=== PATIENT | male | born 1985 | race Caucasian/White ===

== ENCOUNTER 2018-04-11 17:05 | Inpatient (IN) | payer BC, SELFPAY ==
[~2018-04-11 17:05] MED LIST: Dexamethasone 20 MG/5 ML VIAL ONE; Lidocaine 1% PF 5 ML VIAL ONE; Ondansetron HCl/PF 4 MG/2 ML Vial ONE; PROPOFOL 200 MG/20 ML VIAL ONE; Succinylcholine Chloride 20 MG/ML 10 ml SYRINGE FS ONE; ePHEDrine/0.9% NaCl/PF SYRINGE 50 mg/10 ml ONE
[2018-04-11] MEDS ORDERED: Adacel (T-DAP) 0.5 ML VIAL ONE (17:15)
[2018-04-11] MEDS ORDERED: Lidocaine 1% (PF) 30 ML VIAL ONE (17:19)
--- NOTE | 2018-04-11 17:49 | RAD ---
THREE VIEWS RIGHT HAND 04/11/18 HISTORY: Injury to right hand while using tools, bleeding controlled. AP, lateral, and oblique views of the right hand obtained. Three views right hand demonstrates no definite evidence of fractures or significant bony lesions. Th ere may be some soft tissue injury along the base of the second digit. IMPRESSION: No evidence of acute right hand bony lesion seen. POS: [facility]
[2018-04-11] MEDS ORDERED: HYDROcodone/Acetaminophen 5/325 mg Tablet ONE (18:14)
[2018-04-11 18:40] LABS: #Eosinphils 0.1 thou/uL (0.0-0.7); #Monocytes 0.5 thou/uL (0.11-0.59); #Neutrophils 4.8 thou/uL (1.40-6.50); %Basophils 0.3 % (0.0-1.0); %Eosinophils 1.8 % (0.0-10.0); %Lymphocytes 15.5 % (21.0-51.0); %Monocytes 7.9 % (0.0-10.0); %Neutrophils 74.5 % (42.0-75.0); Hemoglobin 13.5 g/dL (14.0-18.0); Mean Corpuscular HGB CONC 32.7 g/dL (32.0-36.0); Mean Corpuscular Hemoglobin 30.3 pg (27.0-31.0); Mean Corpuscular Volume 92.8 fL (78.0-98.0); Mean Platelet Volume 8.9 fL (7.4-10.4); Platelet Count 219 thou/uL (130-400); RBC Distribution Width 12.8 % (11.5-14.5); Red Blood Cell (RBC) Count 4.45 mill/uL (4.70-6.10); White Blood Cell (WBC) Count 6.4 thou/uL (4.8-10.8)
[2018-04-11 18:48] LABS: INR-International Normal Ratio 1.1; PTT 32.3 SEC (22.9-36.1); Prothrombin Time 13.9 SEC (12.0-14.7)
[2018-04-11] MEDS ORDERED: CEFAZOLIN/Water 2 GM/20 ML SYRINGE SLOW IVP SCH (19:00)
[2018-04-11] MEDS ORDERED: Gentamicin Sulfate 80 MG in Premix Bag 1 BAG IVPB SCH (19:00)
[2018-04-11] MEDS ORDERED: Penicillin G Potassium 3 MILL.UNITS in Sodium Chloride 0.9% 50 ML IVPB SCH (19:00)
[2018-04-11 19:02] LABS: ALT (SGPT) 21 U/L (8-55); AST (SGOT) 26 U/L (5-34); Albumin 4.2 g/dL (3.5-5.0); Alkaline Phosphatase 49 U/L (40-150); Anion Gap 11 mmol/L (10-20); BUN (Urea Nitrogen) 15 mg/dL (8.9-20.6); Bilirubin, Total 0.6 mg/dL (0.2-1.2); Calc. Creatinine Clearance 0 mL/min (70-130); Calcium 9.3 mg/dL (7.8-10.44); Carbon Dioxide 29 mmol/L (22-29); Chloride 103 mmol/L (98-107); Estimated GFR-MDRD 86; Glucose 114 mg/dL (70-105); Protein, Total 7.2 g/dL (6.0-8.3); Sodium 139 mmol/L (136-145)
[2018-04-11] MEDS ORDERED: Ondansetron ODT 4 MG TAB PO PRN (19:22)
[2018-04-11] MEDS ORDERED: Dextrose 50% Abboject 50 ML SYRINGE SLOW IVP PRN (19:22)
[2018-04-11] MEDS ORDERED: Dextrose 5% in Water 1,000 ML IV PRN (19:22)
[2018-04-11] MEDS ORDERED: Ondansetron ODT 4 MG TAB ONE (19:27)
[2018-04-11] MEDS ORDERED: Bacitracin Zinc Ointment 30 gm TUBE ONE (20:52)
[2018-04-11] MEDS ORDERED: Sodium Chloride 0.9% 30 ML ONE (20:52)
[2018-04-11] MEDS ORDERED: Bupivacaine PF 0.5% 30 ML VIAL ONE ×2 (20:52→22:46)
[2018-04-11] MEDS ORDERED: Betamet Acet/Betamet Na Ph 30 MG/5 ML VIAL ONE (20:52)
[2018-04-11] MEDS ORDERED: HYDROmorphone 2 MG/ML VIAL ONE (21:06)
[2018-04-11] MEDS ORDERED: Fentanyl 100 MCG/2 ML VIAL ONE (21:06)
[2018-04-11 21:22] VITALS: BMI 28.7
[2018-04-11] MEDS: Acetaminophen 325 MG TAB PO SCH (21:48)
[2018-04-11] MEDS: Ibuprofen 600 MG TAB PO SCH (21:49)
[2018-04-11] MEDS: traMADol HCl 50 MG TAB PO SCH (21:49)
[2018-04-11] MEDS: Famotidine 20 MG TAB PO SCH (21:49)
[2018-04-11] MEDS ORDERED: CEFAZOLIN 1 GM VIAL SLOW IVP SCH (22:00)
[2018-04-11] MEDS: CEFAZOLIN 1 GM in Sodium Chloride 0.9% 100 ML IVPB SCH (23:10)
[2018-04-11] MEDS: Gentamicin Sulfate 80 MG in Premix Bag 1 BAG IVPB SCH (23:11)
[2018-04-12] MEDS ORDERED: Ondansetron HCl/PF 4 MG/2 ML Vial IVP PRN (00:22)
[2018-04-12] MEDS ORDERED: Promethazine HCl 25 MG/ML VIAL IM PRN (00:22)
[2018-04-12] MEDS ORDERED: Promethazine HCl 25 MG/ML VIAL SLOW IVP PRN (00:22)
[2018-04-12] MEDS ORDERED: HYDROmorphone 2 MG/ML VIAL SLOW IVP PRN (00:22)
[2018-04-12] MEDS ORDERED: Ketorolac Tromethamine 30 MG/ML VIAL ONE (00:28)
[2018-04-12] MEDS ORDERED: Ondansetron HCl/PF 4 MG/2 ML Vial IV PRN (00:31)
[2018-04-12] MEDS ORDERED: Bisacodyl 10 MG SUPP PR PRN (00:31)
[2018-04-12] MEDS ORDERED: Milk Of Magnesia 30 ML UDCUP PO PRN (00:31)
[2018-04-12] MEDS ORDERED: Acetaminophen 325 MG TAB PO PRN (00:31)
[2018-04-12] MEDS ORDERED: Meperidine HCl/PF 25 MG/ML VIAL IM PRN (00:42)
[2018-04-12] MEDS ORDERED: Ketorolac Tromethamine 30 MG/ML VIAL IVP PRN (00:42)
[2018-04-12] MEDS ORDERED: Communication Order-Pharmacy FS SCH (00:45)
[2018-04-12] MEDS ORDERED: TETANUS AND DIPHTHERIA TOX/PF 0.5 ML DISP.SYRIN IM SCH (00:45)
[2018-04-12] MEDS: Acetaminophen 325 MG TAB PO SCH ×4 (01:19→18:44)
[2018-04-12] MEDS: Ketorolac Tromethamine 30 MG/ML VIAL IVP SCH ×3 (01:25→18:11)
[2018-04-12] MEDS: traMADol HCl 50 MG TAB PO SCH ×4 (01:28→18:44)
[2018-04-12] MEDS: Vancomycin HCl 1.25 GM in Sodium Chloride 0.9% 250 ML 250 ML IVPB SCH ×3 (01:42→18:11)
[2018-04-12] MEDS: Ibuprofen 600 MG TAB PO SCH ×3 (03:08→18:44)
[2018-04-12] MEDS: CEFAZOLIN 1 GM in Sodium Chloride 0.9% 100 ML IVPB SCH ×2 (05:12→14:21)
[2018-04-12] MEDS: Gentamicin Sulfate 80 MG in Premix Bag 1 BAG IVPB SCH ×2 (05:58→14:21)
--- NOTE | 2018-04-12 07:09 | HP ---
DATE OF SERVICE: 04/11/[address] Ashraf in the emergency department, trauma attending is Dr. Giuliana Brown. CONSULTING HAND SURGEON: Dr. Monterroso. HISTORY OF PRESENT ILLNESS: Mr. Walker is a 32-year-old male with past medical history of RA on methotrexate weekly, who presented to the emergency department today after sustaining an injury with a table saw to his right hand first and second digit. The patient is right-hand dominant. Denies any other injuries. States accidental injury. He has got a laceration to the dorsum of the second digit about the DIP joint with concern per the ER for extensor tendon injury. He has a large open wound to the palmar aspect of the first digit between the DIP and end of the finger. Bleeding has been controlled. The patient has been given Tdap, penicillin, gentamicin, and Ancef in the emergency department. He has primary closure of the laceration to the second digit. They were unable to close the first digit. Dr. Monterroso with Hand Surgery has been consulted and recommends admission. I evaluated the patient in the emergency department. He denies any other injuries. He has no chest pain, no shortness of breath, no nausea, no vomiting. He has a block in place and is currently being managed by the emergency department team. The patient has never had trouble with anesthesia. His last oral intake was at 2:00 today. REVIEW OF SYSTEMS: Pertinent positive and negative per the HPI, otherwise is regarded is negative. PAST MEDICAL HISTORY: Rheumatoid arthritis. PAST SURGICAL HISTORY: Left knee ACL and meniscal repair last year. MEDICATIONS: Methotrexate weekly. ALLERGIES: No known drug allergies. 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 He socially drinks alcohol. Denies tobacco or smoking and no drugs. FAMILY HISTORY: Significant for hypertension, diabetes in his father, and hypertension in his mother. PHYSICAL EXAMINATION: VITAL SIGNS: Blood pressure 123/73, heart rate is 80, respiratory rate is 16, temperature is 98.6, O2 sat is 99% on room air. GENERAL: A 32-year-old male sitting up in bed in no acute distress. HEENT: Normocephalic and atraumatic. Trachea is midline. NECK: No JVD is appreciated. RESPIRATORY: Equal rise and fall. Bilateral breath sounds are clear to auscultation in upper and lower bilaterally with no rubs or wheezes appreciated. CARDIOVASCULAR: Regular rate and rhythm. No murmurs. No edema. ABDOMEN: Soft and nontender. MUSCULOSKELETAL: Moves all extremities well. Lung bones appear intact. Detailed exam of right upper extremity, he has a laceration to the dorsum of the second digit about the PIP joint. He is blocked, so I am unable to get sensation. Bleeding is controlled. The patient is able to flex every digit and every joint extension. He is able to fully extend the digit even has some movement against resistance at both the DIP and PIP joint of the second digit. The first digit has a large laceration that is open. I am unable to see any bone. The nail is intact. Laceration is from the DIP to the tip of the digit. He has full opposition strength and flexion of the digit. SKIN: [place], warm, and dry. NEUROLOGIC: Alert and oriented to person, place, time, and event. PSYCHIATRIC: Normal mood and affect. DIAGNOSTIC DATA: Hand with no bony injuries. LABORATORY DATA: Today, white blood cell count of 6.4, platelets are 219, hemoglobin and hematocrit 13.5 and 41.3 respectively. PT is 13.9, INR 1.1. Chemistry: Sodium is 139, potassium 4.0, chloride 103, CO2 is 29, BUN is 15, creatinine 1.01, glucose 114. Liver function is within normal limits. ASSESSMENT: 1. Complex laceration to the first digit of the dominant right hand. 2. Concern for extensor tendon injury of the right dominant hand, second digit at the distal interphalangeal joints. 3. History of rheumatoid arthritis. PLAN: 1. I have discussed the case with Dr. Monterroso. He is going to likely post him for tonight, take him to the OR for exploration and management. 2. Continue gentamicin 80 mg q.8 hours and Ancef 1 g q.8 hours per hand surgery. 3. Pain control as needed. 4. N.p.o. now. 5. Admit to the surgical service. The wound on the second digit is being primarily closed. I have requested an additional stitch to be placed. 6. Tdap by the ER. 7. Diet will be n.p.o. 8. Activity: Ad-kika. 9. Full code. 10. Prophylaxis: Pepcid, SCDs. Hold chemical DVT prophylaxis for operative procedure and then ambulated the patient. 11. Access: Peripheral IVs. DISPOSITION: OR then surgery chris. I have updated the patient at the bedside and answered all questions. I have coordinated the care with the emergency department physician, the hand surgery team when this plan can be updated as needed. MARCELLA
--- NOTE | 2018-04-12 07:37 | RAD ---
4 INTRAOPERATIVE IMAGES OF RIGHT FINGERS: Date: 04/11/18 COMPARISON: None. HISTORY: Finger pinning. FINDINGS: There is a pin traversing the second distal interphalangeal joint, inserted distally. There is normal anatomic alignment at the postoperative site. IMPRESSION: Intraoperative imaging as above. POS: [facility]
[2018-04-12] MEDS: Famotidine 20 MG TAB PO SCH ×2 (08:15→20:09)
[2018-04-12] MEDS: Aspirin 81 mg Enteric Coated Tablet PO SCH ×2 (08:15→20:09)
[2018-04-12] MEDS ORDERED: Vancomycin HCl 1 GM in Premix Bag 1 BAG IVPB SCH (09:00)
--- NOTE | 2018-04-12 15:43 | OP ---
DATE OF SURGERY: 04/12/2018 POSTOPERATIVE DIAGNOSES: 1. Right thumb deep laceration down to but not including bone with a 3 x 1.5 cm complex wound. 2. Right index finger open distal interphalangeal joint injury with exposed joint cartilage, complet e zone 1 tendon laceration with intraoperative findings confirming impression fracture from a solid b ase distal phalanx, neck and subchondral region of the middle phalanx. PROCEDURES PERFORMED: 1. Right thumb: A. Debridement of wound. B. Neuroplasty digital nerve under magnification. C. 1.0 cm wound closure over a total of 3.5 x 1 cm (2.5 cm left) and then 5 full thickness skin myra t to thumb 3 X 1.5 cm ipsilateral right antecubital fossa. 2. At the right index finger: A. Debridement of bone and joint and material associated with open fracture. B. Open distal phalanx and middle phalanx neck fracture debridement and same. 3. The last procedures pinning distant phalangeal joint with extensor tendon repair, zone 1, 3 .0 cm wound laceration closure and C-arm supervision at the right index finger. SPECIMEN: Multiple particle small from index finger and thumb for mild to moderate contamination. ESTIMATED BLOOD LOSS: 10 mL FINDINGS: 1. Full-thickness skin loss to thumb with FPL intact. 2. Open joint index finger distal interphalangeal joint dorsal with compression fractures each one a pproximately 5 mm long and 1 mm wide base of the distal phalanx and neck subchondral bone of the midd le phalanx. 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 DESCRIPTION OF PROCEDURE: After successful general LMA technique by [place] [employer]est[employer], limb was pr epped and draped. The patient had the time out done appropriately, limb exsanguinated, tourniquet in flated to 250 mmHg pressure. The patient had both wounds initially evaluated, could not see much of vital structures. The patient then had both wounds extended with the thumb, extended 1 cm proximal zigzag fashion and the index fi nger wound extended the same mild proximally, dissected subcutaneous tissue, each one debrided the sk in edges using the following technique. A. Tenotomy scissors. B. Curette. C. technique. D. No evidence of further inflammation or infection. After this, the same techniques and instruments were used for bone debridement of the open fractures in the index finger and the thumb. The patient had the wound now debrided at both sites index and th umb, undergo a final irrigation and we began closure. First we pinned under C-arm supervision the in dex finger, distal phalangeal joint in slight hyperextension, cut the K-wire . We then were abl e to have freed up the distal end, matrix, away from the matrix, made the hole. The patient no w could visualize the extensor mechanism on index finger, so it was sewed with 6 interrupted figure-o f-eight sutures and the patient was prepared for final manipulation if needed. K-wire cut off below the skin slightly at the tip of the index finger. I now turned attention to the thumb where the wound debrided using same technique listed for the inde x finger were accomplished, the wound edges shows copious bleeding, the lack of moderate gross contam ination here also was affected and decided primarily closed. We then closed the distal 1 cm and prox imally 1 cm completed with 4-0 nylon and then we were able to close the distal 1 cm, proximal 1 cm, l aceration make an almost 3-3.5 cm long. We outlined the graft on the antecubital fossa. It must be noted that this area and underwent injection with Marcaine 0.5% of 10 mL, but 10 mL has already been given in each of the two operative sites before initiating contact. Now that the wound care risks we re all in excellent condition, we then measured the defect, found it was approximately 2.5 cm, we the n completed the index finger with the graft that was harvested ipsilateral antecubital fossa. I then closed this in the 1 layer of running 4-0 Monocryl and used 4-0 nylon to suture epidermis. Bu lky dressing was applied over bacitracin, Adaptic. A standard bolster was applied to the graft on th e thumb, oversewn.
--- NOTE | 2018-04-12 18:24 | PRG-2 ---
DATE OF SERVICE: 04/12/2018 SUBJECTIVE: This is a 32-year-old male who sustained a right hand laceration secondary to a table sa w use. Today, he states that his pain is well controlled. He denies any shooting pain or any throbb ing pain. He denies any shortness of breath, trouble breathing, chest pain, abdominal pain. The pat ient was seen by OT states that he is independent for ADLs, transfers and gait, no longer needs OT. OBJECTIVE: VITAL SIGNS: Temperature 98.0, pulse 83, respirations 18, pulse ox 96 on room air, blood pressure 10 4/65. GENERAL: The patient is sitting up in bed in no acute distress. HEART: Regular rate and rhythm with no murmurs. RESPIRATORY: Clear to auscultation bilaterally. No respiratory distress. MUSCULOSKELETAL: Right hand is bandaged at this time. The patient has cap refill less than 2 second s in all 4 extremities. Patient is neurovascularly intact to all four extremities. LABORATORY DATA: No new labs. ASSESSMENT: 1. Complex laceration of the first digit of dominant hand and extensor tendon injury of the right do minant hand second digit and distal phalangeal joints. Postop day #1 for debridement of wound and re pair. 2. History of rheumatoid arthritis. PLAN: The patient has undergone surgery for repair and debridement of wound. The patient is current ly on deep venous thrombosis and gastrointestinal prophylaxis. We are managing his pain. The patien t will require 24 hours of IV antibiotics and therefore will likely be discharged tomorrow the no other changes. Dr. Desouza saw this patient and we discussed the treatment and plan.
[2018-04-13] MEDS: Ketorolac Tromethamine 30 MG/ML VIAL IVP SCH ×2 (00:37→06:31)
[2018-04-13] MEDS: Acetaminophen 325 MG TAB PO SCH ×2 (00:38→06:35)
[2018-04-13] MEDS: traMADol HCl 50 MG TAB PO SCH ×2 (00:38→06:34)
[2018-04-13 01:52] LABS: Vancomycin, Trough 12.6 ug/mL
[2018-04-13] MEDS: Ibuprofen 600 MG TAB PO SCH (02:31)
[2018-04-13] MEDS: Vancomycin HCl 1.25 GM in Sodium Chloride 0.9% 250 ML 250 ML IVPB SCH (02:32)
[2018-04-13 04:29] VITALS: TEMP 97.9
[2018-04-13 07:55] VITALS: BP 113/72
[2018-04-13] MEDS: Famotidine 20 MG TAB PO SCH (08:10)
[2018-04-13] MEDS: Aspirin 81 mg Enteric Coated Tablet PO SCH (08:11)
[2018-04-13] MEDS ORDERED: Vancomycin HCl 1.5 GM in Sodium Chloride 0.9% 250 ML 300 ML IVPB SCH (10:00)
== END 2018-04-13 08:15 | disposition home or self-care (01) | DRG 513 ==
LOC: ERS 17:05 → SURG A 20:38 → INTOOBSV 20:38 → OBSVTOIN 20:38
PROVIDERS: ADMIT Surgery; ATTEND Surgery
PROC: 0LQ70ZZ Repair Right Hand Tendon, Open Approach (ICD-10-PCS; principal; 2018-04-12)
PROC: 0HRFX73 Replacement of Right Hand Skin with Autologous Tissue Substitute, Full Thickness, External Approach (ICD-10-PCS; 2018-04-12)
PROC: 0HBDXZZ Excision of Right Lower Arm Skin, External Approach (ICD-10-PCS; 2018-04-12)
DX: S66.320A Laceration of extensor muscle, fascia and tendon of right index finger at wrist and hand level, initial encounter (principal); S62.630B Displaced fracture of distal phalanx of right index finger, initial encounter for open fracture; S62.620B Displaced fracture of middle phalanx of right index finger, initial encounter for open fracture; S61.011A Laceration without foreign body of right thumb without damage to nail, initial encounter; W31.2XXA Contact with powered woodworking and forming machines, initial encounter; Y93.9 Activity, unspecified; Y92.9 Unspecified place or not applicable; Y99.9 Unspecified external cause status; M06.9 Rheumatoid arthritis, unspecified
CPT/HCPCS: 36415; 64450; 76001; 80053; 80202; 85025; 85610; 85730; 86850; 86900; 86901; 90471; 90715; 96365; 96374; 96375; A4216; G8987-GO-CI; G8988-GO-CI; G8989-GO-CI; J0690; J0702; J1100; J1170; J1580; J1885; J2001; J2405; J2540; J2704; J3010; J3370; J3490; J7050; Q0162; S0020